=== PATIENT | male | born 1990 | race Caucasian/White ===

== ENCOUNTER 2023-05-06 15:54 | Outpatient (OUT) | payer BC, SELFPAY ==
--- NOTE | 2023-05-06 16:05 | US_ITS ---
[address] [address] Patient Name: JERONIMO ROBIN MRN: [id number] date: 1990 Sex: M Assigned Patient Location: Current Patient Location: Accession/Order Number: [id number] Exam Date: 05/06/2023 16:10 Report Date: 05/07/2023 06:52 At the request of: GERHARD KOLB Procedure: US scrotum EXAMINATION: US scrotum HISTORY: pain in right testicle N50.811 COMPARISON: No relevant comparison available. TECHNIQUE: High-resolution sonographic imaging of the scrotum and contents was performed. FINDINGS: The right testicle is normal in size, contour and homogeneous echotexture measuring 4.2 x 2.5 x 3.6 cm. Normal color and Doppler flow. The right epididymis is mildly heterogeneous. No focal mass. No right hydrocele. Moderate right varicocele. The left testicle is normal in size, contour and homogeneous echotexture measuring 4.2 x 2.5 x 2.8 cm. Normal color and Doppler flow. The left epididymis is mildly heterogeneous. No focal mass. No left hydrocele. Large left varicocele US/US scrotum IMPRESSION: Moderate right and large left varicoceles Electronically authenticated by: LINDSAY BENTON Date: 05/07/2023 06:52
== END 2023-05-06 15:55 | disposition home or self-care (01) ==
LOC: US 15:59
PROVIDERS: PCP Nurse Practitioner; Visit Provider Nurse Practitioner
DX: N50.811 Right testicular pain (principal); I86.1 Scrotal varices
CPT/HCPCS: 76870

== ENCOUNTER 2024-09-23 12:12 | Emergency (ER) | payer BC, SELFPAY ==
[2024-09-23 12:17] VITALS: BP 128/86; PULSE 88; TEMP 36.9; O2SAT 96; BMI 32.7
--- OUTSIDE RECORDS SUMMARY | 2024-09-23 12:30 | XMS_ITS | Encounter Summary ---
Author Organization [facility] Address [address] [place] [place] [address] Care Team Providers Care Grocery Worker Name Role Phone Shaikh JENELLE Stevens Primary Care Provider [phone] Ashley Vora NP Unavailable [phone] Encounter Details Date Type Department Care Team (Late st Contact Info) Description 05/05/2023 Abstract [facility] [address] [place] [address] Ashley Vora NP [address] [place] [id number] Social History Tobacco Use Types Packs/Day Years Used Date Smoking Tobacco: Never Assessed Sex and Gender Information Value Date Recorded Sex Assigned at Not on file Legal Sex Male 7:13 PM EDT Gender Identity Not on file Sexual Orientation Not on file documented as of this encounter Plan of Treatment Not on file documented as of this encounter Visit Diagnoses Not on filedocumented in this encounter Care Teams Grocery Worker Relationship Specialty Start Date End Date Shaikh Stevens MD PCP - General Internal Medicine 05/06/23 Ashley Vora NP [address] [place] [phone] PCP - [place] [employer] 06/20/23 documented as of this encounter
--- OUTSIDE RECORDS SUMMARY | 2024-09-23 12:30 | XMS_ITS | Encounter Summary ---
Author Organization [facility] Address [address] [place] [address] Care Team Providers Care Mat Linker Name Role Phone Shaikh JENELLE Stevens Primary Care Provider [phone] Ashley Vora NP Unavailable [phone] Encounter Details Date Type Department Care Team (Late st Contact Info) Description 05/07/2023 Clinisync Result Encounter [facility] External Department Unsolicited Ashley Vora, SOBEIDA [address] [place] [id number] Social History Tobacco Use Types Packs/Day Years Used Date Smoking Tobacco: Former Cigarettes Smokeless Tobacco: Never Alcohol Use Standard Drinks/Week Comments Never 0 (1 standard drink = 0.6 oz pur e alcohol) caffine:energy drink 2 daily Sex and Gender Information Value Date Recorded Sex Assigned at Not on file Legal Sex Male 7:13 PM EDT Gender Identity Not on file Sexual Orientation Not on file documented as of this encounter Plan of Treatment Not on file documented as of this encounter Procedures Procedure Name Priority Date/Time Associated Diagnosis Comments US SCROTUM 05/07/2023 6:52 AM EST documented in this encounter Results * US scrotum (05/07/2023 6:52 AM EST) Anatomical Region Laterality Modality Body Ultrasound 05/07/2023 6:52 AM EST Narrative 05/07/2023 6:54 AM EST [facility] [address] [place] [address] Ultrasound Report Signed Patient: CONRAD KRUGER MR#: [id number] : 1990 Acct:[id number] Age/Sex: 32 / M ADM Date: 05/06/23 Loc: US Attending Dr: Ashley Vora NP Ordering Physician: Ashley Vora NP Date of Service: 05/06/23 Procedure(s): US scrotum Accession Number(s): [id number] cc: Ashley Vora NP [facility] [place] [id number] Patient Name: CONRAD KRUGER MRN: [id number] date: 1990 Sex: M Assigned Patient Location: US Current Patient Location: Accession/Order Number: [id number] Exam Date: 05/06/2023 16:10 Report Date: 05/07/2023 06:52 At the request of: ASHLEY VORA Procedure: US scrotum EXAMINATION: US scrotum HISTORY: pain in right testicle N50.811 COMPARISON: No relevant comparison available. TECHNIQUE: High-resolution sonographic imaging of the scrotum and contents was performed. FINDINGS: The right testicle is normal in size, contour and homogeneous echotexture measuring 4.2 x 2.5 x 3.6 cm. Normal color and Doppler flow. The right epididymis is mildly heterogeneous. No focal mass. No right hydrocele. Moderate right varicocele. The left testicle is normal in size, contour and homogeneous echotexture measuring 4.2 x 2.5 x 2.8 cm. Normal color and Doppler flow. The left epididymis is mildly heterogeneous. No focal mass. No left hydrocele. Large left varicocele US/US scrotum IMPRESSION: Moderate right and large left varicoceles Electronically authenticated by: LINDSAY BENTON Date: 05/07/2023 06:52 Dictated By: Lindsay Benton M.D. Signed By: 05/07/2354 DD/ TD/TT: Security Guard Supervisor: Procedure Note Radiology, Radiologist, - 05/07/[address] [address] Ultrasound Report Signed Patient: CONRAD KRUGER JMR#: [id number] : 1990Acct:[id number] Age/Sex: 32 / MADM Date: 05/06/23 Loc: US Attending Dr: Ashley Vora NP Ordering Physician: Ashley Vora NP Date of Service: 05/06/23 Procedure(s): US scrotum Accession Number(s): [id number] cc: Ashley Vora NP [place] [id number] Patient Name: CONRAD KRUGER MRN: [id number] date: 1990 Sex: M Assigned Patient Location: US Current Patient Location: Accession/Order Number: [id number] Exam Date: 05/06/2023 16:10 Report Date: 05/07/2023 06:52 At the request of: ASHLEY VORA Procedure: US scrotum EXAMINATION: US scrotum HISTORY: pain in right testicle N50.811 COMPARISON: No relevant comparison available. TECHNIQUE: High-resolution sonographic imaging of the scrotum and contentswas performed. FINDINGS: The right testicle is normal in size, contour and homogeneous echotexture measuring 4.2 x 2.5 x 3.6 cm. Normal color and Doppler flow. The right epididymis is mildly heterogeneous. No focal mass. No right hydrocele. Moderate right varicocele. The left testicle is normal in size, contour and homogeneous echotexture measuring 4.2 x 2.5 x 2.8 cm. Normal color and Doppler flow. The left epididymis is mildly heterogeneous. No focal mass. No left hydrocele. Large left varicocele US/US scrotum IMPRESSION: Moderate right and large left varicoceles Electronically authenticated by: LINDSAY BENTON Date: 05/07/2023 06:52 Dictated By: Lindsay Benton M.D. Signed By:05/07/23 0654 DD/ 0652 TD/TT: Security Guard Supervisor: us Ashley Vora NP IMG US PROCEDURES Final Result documented in this encounter Visit Diagnoses Not on filedocumented in this encounter Care Teams Mat Linker Relationship Specialty Start Date End Date Shaikh Stevens MD PCP - General Internal Medicine 05/06/23 Ashley Vora NP [address] [facility] [place] [address] PCP - [place] [employer] 06/20/23 documented as of this encounter
--- OUTSIDE RECORDS SUMMARY | 2024-09-23 12:30 | XMS_ITS | Clinical Summary ---
Author Organization [facility] Address [address] [place] [address] Care Team Providers Care Buckle Coverer Name Role Phone Shaikh JENELLE Stevens Primary Care Provider [phone] Ashley Vora NP Unavailable [phone] Allergies No known active allergies Medications Buprenorphine HCl-Naloxone HCl (Suboxone) 8-[address] 2 Film under the tongue 1 (one) time Active Active Problems Problem Noted Date Diagnosed Date BMI 31.0-31.9,adult 05/06/2023 Nicotine dependence due to vaping tobacco produc t 05/06/2023 Pain in right testicle 05/06/2023 Assessment & Plan (05/06/2023 4:30 PM EST): Sent for scrotal US to r/o torsion Will await to see results No acute distress at time of appt, is not voiding blood, no blood in ejaculate, no blood stools, no constipation Family History Medical History Relation Name Comments Migraines Brother Alcohol abuse Father Asthma Father Hypertension Father Obesity Father Relation Name Status Comments Brother Alive Father Alive Mother Alive Social History Tobacco Use Types Packs/Day Years Used Date Smoking Tobacco: Former Cigarettes Smokeless Tobacco: Never Tobacco Cessation:Counseling Given: Not Answered Alcohol Use Standard Drinks/Week Comments Never 0 (1 standard drink = 0.6 oz pur e alcohol) caffine:energy drink 2 daily Sex and Gender Information Value Date Recorded Sex Assigned at Not on file Legal Sex Male 7:13 PM EDT Gender Identity Not on file Sexual Orientation Not on file Last Filed Vital Signs Vital Sign Reading Time Taken Comments Blood Pressure 122/78 05/06/2023 3:00 PM EST Pulse 78 05/06/2023 3:00 PM EST Temperature 36.4 C (97.5 F) 05/06/2023 3:00 PM EST Respiratory Rate 18 05/06/2023 3:00 PM EST Oxygen Saturation 98% 05/06/2023 3:00 PM EST Inhaled Oxygen Concentration - - Weight 94.9 kg (209 lb 3.2 oz) 05/06/2023 3:00 P M EST Height 172.7 cm (5' 8 ) 05/06/2023 3:00 PM EST Body Mass Index 31.81 05/06/2023 3:00 PM EST Plan of Treatment Health Maintenance Due Date Last Done Comments Influenza Vaccine (Season Ended) 2024 Insurance BCBS Care Teams Buckle Coverer Relationship Specialty Start Date End Date Shaikh Stevens MD PCP - General Internal Medicine 05/06/23 Ashley Vora NP [address] [place] [address] PCP - [place] [employer] 06/20/23
--- OUTSIDE RECORDS SUMMARY | 2024-09-23 12:30 | XMS_ITS | Encounter Summary ---
Author Organization [facility] Address [address] [place], [place] [id number] Care Team Providers Care Elevator Tender Name Role Phone Ashley Vora CNP Primary Care Provider [phone] Source Comments In the event this information is protected by the Federal Confidentiality of Alcohol and Drug AbusePatient Records regulations: The Federal rules restrict any use of the information to criminally investigate or prosecute any alcohol or drug abuse patient.[facility] Encounter Details Date Type Department Care Team (Latest Contact Info) Description 09/09/2019 H&P External-NonCCF Provider, External, [facility] Do not enter address information under generic External Provider. Social History Tobacco Use Types Packs/Day Years Used Date Smoking Tobacco: Never Assessed Sex and Gender Information Value Date Recorded Sex Assigned at Not on file Legal Sex Male 10:11 AM EDT Gender Identity Not on file Sexual Orientation Not on file COVID-19 Exposure Response Date Recorded In the last month, have you been in contact with someone who was confirmed or suspected to have Coronavirus / COVID-19? No / Unsure 09/08/2019 11:05 AM EDT documented as of this encounter Plan of Treatment Not on file documented as of this encounter Visit Diagnoses Not on filedocumented in this encounter Care Teams Elevator Tender Relationship Specialty Start Date End Date Ashley Vora CNP PCP - General Family Medicine 09/08/19 documented as of this encounter
--- NOTE | 2024-09-23 12:31 | XR_ITS ---
The [address] [address] Patient Name: JERONIMO ROBIN MRN: [id number] date: 1990 Sex: M Assigned Patient Location: ER Current Patient Location: ER Accession/Order Number: [id number] Exam Date: 09/23/2024 12:53 Report Date: 09/23/2024 12:55 At the request of: KENYETTA BURNETT NP Procedure: XR soft tissue neck SOFT TISSUE NECK - 2 views CLINICAL HISTORY: swallowed fishbone 4 days ago. Continued pain L side neck COMPARISON: None AP and lateral views were obtained. The epiglottis is unremarkable. There is no enlargement of the tonsils or adenoids. No prevertebral soft tissue swelling or subcutaneous air is seen. The airway is patent. There is mild degenerative change at the cervical spine. No obvious hepatic foreign bodies are seen. XR/XR soft tissue neck IMPRESSION: NO ACUTE FINDINGS OR DEFINITE DEFINITE RADIOPAQUE FOREIGN BODIES Impression dictated by: Marika Mcdowell M.D. 09/23/2024 12:55 PM Dictation Location: [place] [address] Electronically authenticated by: [id number] Y Date: 09/23/2024 12:55
--- NOTE | 2024-09-23 12:40 | ED_ITS ---
HPI HPI - General Adult General Chief complaint: Skin/Abscess/Foreign Body Stated complaint: FOOD STUCK IN THROAT - 4 DAYS Time Seen by Provider: 09/23/24 12:16 Source: patient Mode of arrival: walk-in History of Present Illness HPI narrative: The is a 33-year-old male who presents to the emergency department today for evaluation concerns for foreign body in his throat. He endorses on 09/19 he ate a fish that he caught and when swallowing the piece of fish he felt some bones of the fish in his throat. He states he was able to cough up one of them but is concerned he still has another bone in his throat that he reports he can feel a sharp pinching sensation every time he swallows. Otherwise denies any difficulty swallowing or difficulty maintaining secretions. No nausea or vomiting. No sick symptoms of fevers or chills. He denies any history of dysphagia or GERD. Related Data Home Medications ?Medication ?Instructions ?Recorded ?Confirmed buprenorphine 8 mg-naloxone 2 mg 1 film buccal DAILY 0 09/23/24 09/23/24 sublingual film (Suboxone) Previous Rx's ?Medication ?Instructions ?Recorded pantoprazole 40 mg tablet,delayed 40 mg PO DAILY #14 t abs 09/23/24 release (Protonix) Allergies Allergy/AdvReac Type Severity Reaction Status Date / Time No Known Drug Allergies Allergy Verified 09/23/24 12:17 Review of Systems ROS Status of ROS 10 or more systems reviewed and unremark able except as noted in history and below PFSH PFSH Social History Little interest or pleasure in doing things: not at all Feeling down, depressed, or hopeless: several days Exam Narrative Exam Narrative: Constituational: Awake/ alert, no apparent distress, well hydrated HENMT: normocephalic, external ears normal, no trismus, no stridor, moist oral mucous membranes and oropharynx normal Eyes: EOMI and conjunctivae normal Neck: ROM intact, supple Chest: inspection of chest normal Respiratory: Normal respiratory effort, clear to auscultation bilaterally Cardio: regular rate and regular rhythm GI: soft to palpation and non-tender MSK: +NVI Skin: no rashes or petechiae Neuro: no focal deficits Psych: mental status grossly normal Constitutional Vital Signs, click to edit/add: Last Vital Signs Temp 98.5 F 09/23/24 12:17 Pulse 88 09/23/24 12:17 Resp 16 06/05/25 12:17 BP 128/86 09/23/24 12:17 Pulse Ox 96 09/23/24 12:17 O2 Del Method Room Air 09/23/24 12:17 Course Vital Signs Vital signs: Vital Signs Temperature 98.5 F 09/23/24 12:17 Pulse Rate 88 09/23/24 12:17 Respiratory Rate 16 09/23/24 12:17 Blood Pressure 128/86 09/23/24 12:17 Pulse Oximetry 96 09/23/24 12:17 Oxygen Delivery Method Room Air 09/23/24 12:17 Temperature 98.5 F 09/23/24 12:17 Pulse Rate 88 09/23/24 12:17 Respiratory Rate 16 09/23/24 12:17 Blood Pressure 128/86 09/23/24 12:17 Pulse Oximetry 96 09/23/24 12:17 Oxygen Delivery Method Room Air 09/23/24 12:17 Medical Decision Making MDM Narrative Medical decision making narrative: The patient is a well-appearing 33-year-old male who presented to the emergency department today for evaluation concerns for sensation of a foreign body to his throat. Historically patient had swallowed a fishbone 4 days prior and did cough 1 of these up however is concerned they may still be 1 left in his throat as he feels a poking sensation every time he swallows. Initial examination vital signs overall stable. Patient is maintaining secretions appropriately. X-ray soft tissue neck showed no foreign bodies appreciated on imaging. Patient was reevaluated multiple times and has had no changes in condition. He is not in any respiratory distress and is tolerating oral intake. Discussed these findings with the patient including recommendations for supportive care for sensation of foreign body in the throat. Will refer to ENT for reevaluation. Will discharge home with Protonix. Discussed signs and symptoms of any worsening condition and when to consider reevaluation by the emergency department. Patient verbalized an understanding of this and is agreeable with the plan to be discharged home. Medical Records Medical records reviewed: Yes I reviewed the patient's medical records Imaging Data XR soft tissue neck: Attestation: I have reviewed the pertinent imaging results. Radiologist's impression: ITS Impressions Soft Tissue Neck X-Ray 09/23/24 12:31 IMPRESSION: NO ACUTE FINDINGS OR DEFINITE DEFINITE RADIOPAQUE FOREIGN BODIES Impression dictated by: Marika Mcdowell M.D. 09/23/2024 12:55 PM Dictation Location: [place] [address] Electronically authenticated by: [id number] Y Date: 09/23/2024 12:55 Discharge Plan Discharge Chief Complaint: Skin/Abscess/Foreign Body Clinical Impression: Feeling of foreign body in throat Patient Disposition: Home, Self-Care Prescriptions / Home Meds: New pantoprazole [Protonix] 40 mg tablet,delayed release (DR/EC) 40 mg PO DAILY Qty: 14 0RF No Action buprenorphine-naloxone [Suboxone] 8-2 mg film 1 film buccal DAILY Print Language: Slovenian Additional Instructions: Take Protonix as prescribed. Follow-up with ENT for reevaluation this week as discussed. Referrals: Janeth Last MD [Physician, Ear, Nose, Throat] - 1 week Ashley Vora NP [Primary Care Provider, Family Practice] - 1 week
== END 2024-09-23 13:15 | disposition home or self-care (01) ==
PROVIDERS: Emergency Provider Emergency Medicine; PCP Nurse Practitioner
DX: R09.A2 Foreign body sensation, throat (principal)
CPT/HCPCS: 70360; 99284